=== PATIENT | male | born 1985 | race Two or more races ===

== ENCOUNTER 2020-02-13 11:47 | Inpatient (IN) | payer OTHER ==
[~2020-02-13] VITALS: Ht 170.2 cm; Wt 101.1 kg
[2020-02-13 12:48] LABS: Urine Amorphous Crystal FEW /hpf (None Seen); Urine Bacteria NONE SEEN /hpf (None Seen); Urine Blood Negative /uL (Negative); Urine Specific Gravity 1.016 (1.001-1.035); Urine WBC 2 /hpf (0 - 3)
[2020-02-13 12:55] LABS: Basophils # (auto) 0.1 10 ^3/uL (0-0.2); Basophils % (auto) 1.1 % (0.0-2.0); Eosinophils # (auto) 0 10 ^3/uL (0-0.8); Eosinophils % (auto) 0.5 % (0.0-7.0); Hematocrit 47.8 % (41.0-53.0); Hemoglobin 16.6 g/dL (13.5-17.5); Lymphocytes % (auto) 26.8 % (10.0-50.0); Mean Corpuscular Hemoglobin 31.4 pg (28.0-32.0); Mean Corpuscular Hgb Conc. 34.8 g/dL (32.0-36.0); Mean Corpuscular Volume 90.2 fL (80.0-100.0); Monocytes # (auto) 0.5 10 ^3/uL (0-1.3); Monocytes % (auto) 6.8 % (0.0-12.0); Neutrophils # (auto) 4.9 10 ^3/uL (1.6-8.6); Neutrophils % (auto) 64.8 % (37.0-80.0); Nucleated Red Blood Cells % 0.2 %; Platelet Count (auto) 223 10^3/uL (140-450); Red Cell Distribution Width 13.3 % (11.8-14.3); White Blood Cell 7.5 10^3/uL (4.4-10.8)
[2020-02-13] MEDS ORDERED: SODIUM CHLORIDE 0.9% 1,000 ML IVB ONE (13:07)
[2020-02-13 13:12] LABS: Calcium 8.7 mg/dL (8.5-10.1); Potassium 4.3 mmol/L (3.5-5.1)
[2020-02-13 13:15] LABS: Bilirubin, Total 0.8 mg/dL (0.2-1.0); Total Protein 7.9 g/dL (6.4-8.2)
[2020-02-13 13:26] LABS: Magnesium 2.1 mg/dL (1.6-2.6)
[2020-02-13] MEDS ORDERED: ONDANSETRON HCL 4 MG/2 ML VIAL IV ONE (13:30)
[2020-02-13] MEDS ORDERED: MORPHINE SULF INJ 2 MG/ML SYRINGE 1ML IV ONE (13:30)
[2020-02-13] MEDS: HYDROcodone-ACET 10/325MG TAB PO PRN ×2 (18:27→23:00)
--- NOTE | 2020-02-13 19:04 | NUR ---
Patient arrived to unit. no signs of distress, will endorse to night order selector.
--- NOTE | 2020-02-13 19:06 | NUR ---
Paged MD Galvez, regarding patient stating that at the alf the there told him, he could be positive for Covid-19. MD Galvez called back, asking if patient was displaying any sob, coughing, or temps. Informed MD Galvez, none of those symptoms were witness by this nurse. No new orders received at this time. Endorsed care to night BARBARA Novak.
--- NOTE | 2020-02-13 19:10 | NUR ---
Opening Shift Note Assumed care of patient. Patient is awake and alert. No S/S of distress/SOB. Will continue to monitor for changes Q1hr and PRN. Bed locked in lowest position and bed rails up x2. Call light within reach.
[2020-02-13 19:47] VITALS: BP 138/77
[2020-02-13 20:57] VITALS: BP 138/77
[2020-02-13] MEDS: ONDANSETRON HCL 4 MG/2 ML VIAL IV PRN (23:00)
[2020-02-14] MEDS: ONDANSETRON HCL 4 MG/2 ML VIAL IV PRN (04:20)
[2020-02-14] MEDS: HYDROcodone-ACET 10/325MG TAB PO PRN ×4 (04:20→20:56)
[2020-02-14 05:25] VITALS: BP 119/73
--- NOTE | 2020-02-14 07:45 | NUR ---
Opening Shift Note Received report on the patient. Awake lying in bed. Patient states that he is saving SOB and increased coughing. The patient requested to wear a mask. Discussed the plan of care for the patient. Bed is in the lowest position, side rails up x2, and the call light is within reach. Will continue to monitor.
--- NOTE | 2020-02-14 08:11 | NUR ---
Paged Dr Galvez regarding new symptoms of SOB and cough. Awaiting a call back.
[2020-02-14 09:00] VITALS: BP 101/75
[2020-02-14] MEDS ORDERED: ENOXAPARIN SOD 40 MG/0.4 ML SYRINGE SC SCH (10:00)
--- NOTE | 2020-02-14 10:59 | NUR ---
NUTRITION ASSESSMENT NOTES Please refer to link notes of nutrition screen form filed under the intervention section of the plan of care for further details. Est. Energy Needs: 5306-2353 kcal (17-20 kcal/kg BW). Est. Protein Needs: 60-75 gms/day (0.8-1.0 gms/kg Adj.BW). Will continue to monitor pertinent labs and reassess nutrient need prn Addendum: 02/14/20 at [address] Amended: Links added.
--- NOTE | 2020-02-14 11:01 | NUR ---
received new orders.
[2020-02-14] MEDS ORDERED: MANNITOL FTV 25% 12.5 GM/50 ML 50 ML IV ONE (11:30)
--- NOTE | 2020-02-14 12:12 | NUR ---
Swabs Influenza A/B and strep swabs sent to lab
[2020-02-14 13:00] VITALS: BP 110/67
--- NOTE | 2020-02-14 13:01 | NUR ---
Mannitol Mannitol was crystalized so I had to reorder another bag.
--- NOTE | 2020-02-14 14:37 | NUR ---
Swabs are negative. Dr does not want to test for COVID 19.
[2020-02-14] MEDS: SODIUM CHLORIDE 0.9% 1,000 ML IV SCH ×2 (14:40→22:30)
[2020-02-14 16:40] VITALS: BP 139/81
[2020-02-14] MEDS: TAMSULOSIN HYDROCHLORIDE 0.4 MG CAP PO SCH (18:41)
--- NOTE | 2020-02-14 19:30 | NUR ---
received pt f rom day rn poc reviewed
--- NOTE | 2020-02-14 21:00 | NUR ---
c/o pain 6/10 when coughing medicated as ordered, resp even and unlabored, v/s t 98.8, hr 86,r 18 ,97% on 2L
[2020-02-14 22:00] VITALS: BP 109/59
--- NOTE | 2020-02-15 03:05 | NUR ---
resting with eyes closed resp even and unlabored, urine strained as ordered
[2020-02-15] MEDS: HYDROcodone-ACET 10/325MG TAB PO PRN ×4 (04:49→19:08)
--- NOTE | 2020-02-15 04:51 | NUR ---
pt awoke c/o headache 06/23, pt showed me reddened bump on left side of head, no s/s of open wound, pt continue to have a non productive cough, not able to void at this time.
[2020-02-15 05:00] VITALS: BP 148/74
[2020-02-15] MEDS: SODIUM CHLORIDE 0.9% 1,000 ML IV SCH ×3 (06:31→20:41)
--- NOTE | 2020-02-15 06:48 | NUR ---
pt has not voided all night, ambulated earlier to bathroom states wasnt able to void then, urinals at bedside, will look for bladder scanner
--- NOTE | 2020-02-15 06:51 | NUR ---
report given to am nurse poc reviewed
--- NOTE | 2020-02-15 07:05 | NUR ---
PT VOIDED @120 ML NO STONES AFTER STRAINING, PT STATED THAT HE CANT VOID, BLADDER SCANNED NOT ABLE TO GET AN ACCURATE READING PT C/O INCREASED PAIN DURING SCAN, WILL MEDICATED AND REPORT TO AM NURSE INCOMPLETE SCAN
--- NOTE | 2020-02-15 07:25 | NUR ---
Opening shift note Received report on the patient. Awake lying in bed. Patient shows no signs of distress at this time. Discussed the plan of care with the patient. Bed in lowest position, side rails up x2, and the call light is within reach. Will continue to monitor.
[2020-02-15 09:00] VITALS: BP 130/72
[2020-02-15] MEDS: ENOXAPARIN SOD 40 MG/0.4 ML SYRINGE SC SCH (10:51)
[2020-02-15 12:39] VITALS: BP 124/71
[2020-02-15 14:25] LABS: INR 1.21 (0.9-1.15); Partial Thromboplastin Time 29.5 sec (23.64-32.05)
--- NOTE | 2020-02-15 15:34 | NUR ---
Bladder scan Bladder scanned the patient after urination and there was 0mL. No ramirez at this time.
[2020-02-15 17:00] VITALS: BP 127/73
[2020-02-15] MEDS: TAMSULOSIN HYDROCHLORIDE 0.4 MG CAP PO SCH (19:07)
--- NOTE | 2020-02-15 19:53 | NUR ---
RECEIVED PT FROM DAY RN POC REVIEWED
--- NOTE | 2020-02-15 19:54 | NUR ---
DISCUSSED POC WITH PT, INTERPRETOR AT BEDSIDE, WILL CONTINUE TO STRAIN URINE
[2020-02-15] MEDS: KETOROLAC TROMETH 30 MG/ML 1ML VIAL IV PRN (20:40)
--- NOTE | 2020-02-15 20:40 | NUR ---
c/o lower abd pain 04/23 medicated as ordered 100 ml strained urine out at this time
[2020-02-15 22:00] VITALS: BP 123/73
--- NOTE | 2020-02-16 01:05 | NUR ---
resting with eyes closed no c/o discomfort
[2020-02-16 05:00] VITALS: BP 115/76
[2020-02-16] MEDS: HYDROcodone-ACET 10/325MG TAB PO PRN ×3 (05:18→17:27)
[2020-02-16] MEDS: ENOXAPARIN SOD 40 MG/0.4 ML SYRINGE SC SCH (05:18)
--- NOTE | 2020-02-16 06:19 | NUR ---
awoke c/o abd pain 04/23 medicated as ordered urine strained as ordered, pt put out a total of 600 ml of urine
[2020-02-16] MEDS: SODIUM CHLORIDE 0.9% 1,000 ML IV SCH ×3 (06:31→22:07)
--- NOTE | 2020-02-16 06:47 | NUR ---
report given to am nurse poc reviewed
--- NOTE | 2020-02-16 07:45 | NUR ---
Opening Shift Note Assumed care of patient, awake, alert, and oriented. No S/S of distress/SOB or pain. Bed in lowest locked position, bed rails up x2, call light within reach. Instructed on POC and to call for assist PRN. Will continue to monitor for changes Q1hr and PRN.
--- NOTE | 2020-02-16 08:55 | NUR ---
PAIN PAIN C/O 9/10 PAIN TO RUQ ACHY PAIN. WILL MEDICATE PER MD ORDERS
[2020-02-16 09:00] VITALS: BP 131/83
[2020-02-16] MEDS ORDERED: OMNIPAQUE ORAL SOLN 500ml 12mg/ml PO ONE (10:57)
--- NOTE | 2020-02-16 11:15 | NUR ---
CT RN CVOR AT BEDSIDE. ADMINISTERING ORAL CONTRAST.
[2020-02-16] MEDS ORDERED: IOHEXOL 300 MG/ML 100ML BOTTLE IJ ONE (12:55)
[2020-02-16 13:00] VITALS: BP 139/84
[2020-02-16] MEDS: LACTULOSE 20Gm/30ML SOLN PO SCH ×4 (13:42→22:07)
[2020-02-16] MEDS: PIPERACILLIN-TAZO 4.5GM 100 ML IV SCH ×2 (13:43→22:07)
--- NOTE | 2020-02-16 13:51 | NUR ---
OUTPUT PATIENT URINATED 200 ML CLEAR STRAW URINE. URINE STRAINED, NO EVIDENCE OF ANY SEDIMENT OR STONES NOTED. WILL CONTINUE TO MONITOR
[2020-02-16 17:00] VITALS: BP 135/68
[2020-02-16] MEDS: TAMSULOSIN HYDROCHLORIDE 0.4 MG CAP PO SCH (17:16)
--- NOTE | 2020-02-16 17:20 | NUR ---
PAIN PAIN C/O 5/10 PAIN TO LOWER ABDOMEN ACHY PAIN WHILE HE URINATES. WILL MEDICATE PER MD ORDERS
--- NOTE | 2020-02-16 17:33 | NUR ---
OUTPUT PATIENT URINATED 280 ML CLEAR STRAW URINE. URINE STRAINED, NO EVIDENCE OF ANY SEDIMENT OR STONES NOTED. WILL CONTINUE TO MONITOR
--- NOTE | 2020-02-16 19:20 | NUR ---
Opening Shift Note Assumed care of patient, awake and alert. No S/S of distress/SOB or pain. Instructed on POC and to call for assist PRN, will continue to monitor for changes Q1hr and PRN. Call light and bedside table are within reach. Maintained safety precautions bed is in lowest position and bed rails 2x.
[2020-02-16 22:00] VITALS: BP 125/74
--- NOTE | 2020-02-16 22:10 | NUR ---
Patient refused med Patient refused lactulose, states med causes him some abdominal discomfort and that he has had some loose stools. Provided education about med side effects. Will continue to monitor patient Q1 and PRN.
[2020-02-16] MEDS: KETOROLAC TROMETH 30 MG/ML 1ML VIAL IV PRN (23:56)
--- NOTE | 2020-02-17 00:20 | NUR ---
Patient complains of pain Pain level 3, will medicate per MD orders. Will continue to monitor Q1 and PRN. Call light and bedside table are within reach.
[2020-02-17] MEDS: LACTULOSE 20Gm/30ML SOLN PO SCH ×3 (02:00→09:52)
--- NOTE | 2020-02-17 04:00 | NUR ---
Patient urine output 250ml of urine output. Urine strained, no sediment, or stones noted. Will continue to monitor Q1 and PRN.
[2020-02-17 05:39] VITALS: BP 102/62
[2020-02-17] MEDS: SODIUM CHLORIDE 0.9% 1,000 ML IV SCH (05:45)
--- NOTE | 2020-02-17 05:50 | NUR ---
Patient urine output 320ml of urine. Urine strained, no sediment or stones seen. Will continue to monitor Q1 and PRN.
[2020-02-17] MEDS: PIPERACILLIN-TAZO 4.5GM 100 ML IV SCH (05:55)
--- NOTE | 2020-02-17 05:59 | NUR ---
Called MD Waiting for call back from MD Galvez regarding patient complaints of mild abdominal pain and discomfort from lactulose. Will continue to monitor patient Q1 and PRN. Will notify dayshift BARBARA.
--- NOTE | 2020-02-17 07:15 | NUR ---
Opening Shift Note Assumed care of patient, awake and alert. No S/S of distress/SOB or pain. Instructed on POC and to call for assist PRN, will continue to monitor for changes Q1hr and PRN. Fall precautions in place per safety protocol.
[2020-02-17 09:00] VITALS: BP 132/84
[2020-02-17] MEDS: ENOXAPARIN SOD 40 MG/0.4 ML SYRINGE SC SCH (09:51)
--- NOTE | 2020-02-17 12:00 | NUR ---
Discharge instructions given as ordered. Encourage to follow up with PMD as instructed. All questions and concerns addressed. Patient verbalized understanding. Medication reconciliation form completed and copy given to patient. IV removed with catheter intact, pressure dressing applied.
[2020-02-17] MEDS ORDERED: LEVO500T21 PO (12:45)
[2020-02-17 12:57] VITALS: BP 129/78
[2020-02-17 13:00] VITALS: BP 129/78
== END 2020-02-17 13:00 | DRG 690 ==
LOC: EEVIPCON 11:47 → ER 11:47 → OVERFLOW 11:48 → EAST 19:44
PROVIDERS: ADMIT Internal Medicine; ATTEND Internal Medicine
DX: N13.6 Pyonephrosis (principal); N20.2 Calculus of kidney with calculus of ureter; B96.4 Proteus (mirabilis) (morganii) as the cause of diseases classified elsewhere; J06.9 Acute upper respiratory infection, unspecified; M79.10 Myalgia, unspecified site; Z82.49 Family history of ischemic heart disease and other diseases of the circulatory system; Z83.3 Family history of diabetes mellitus
CPT/HCPCS: 36415; 71045; 74018; 74176; 74177; 80053; 81001; 83690; 83735; 85025; 85610; 85730; 87070; 87086; 87088; 87186; 87804; 87880; 96361; 96374; 96375; G0378; J1885; J2405; J2543

== ENCOUNTER 2020-04-08 17:27 | Inpatient (IN) | payer OTHER ==
[~2020-04-08] VITALS: Ht 172.7 cm; Wt 98.7 kg
[~2020-04-08 17:27] MED LIST: LEVO500T21 PO
[2020-04-08] MEDS ORDERED: SODIUM CHLORIDE 0.9% 1,000 ML IVB ONE (17:42)
[2020-04-08] MEDS ORDERED: KETOROLAC TROMETH 30 MG/ML 1ML VIAL IV ONE (17:45)
[2020-04-08] MEDS ORDERED: MORPHINE SULFATE 4 MG/ML SYR/VIAL IV ONE (17:45)
[2020-04-08 18:35] LABS: Basophils # (auto) 0.1 10 ^3/uL (0-0.2); Basophils % (auto) 0.9 % (0.0-2.0); Eosinophils # (auto) 0 10 ^3/uL (0-0.8); Eosinophils % (auto) 0.5 % (0.0-7.0); Hematocrit 46.1 % (41.0-53.0); Hemoglobin 16.3 g/dL (13.5-17.5); Lymphocytes # (auto) 2.3 10 ^3/uL (0.4-5.4); Lymphocytes % (auto) 29.1 % (10.0-50.0); Mean Corpuscular Hemoglobin 31.9 pg (28.0-32.0); Mean Corpuscular Hgb Conc. 35.3 g/dL (32.0-36.0); Mean Corpuscular Volume 90.3 fL (80.0-100.0); Monocytes # (auto) 0.5 10 ^3/uL (0-1.3); Monocytes % (auto) 6.9 % (0.0-12.0); Neutrophils # (auto) 4.9 10 ^3/uL (1.6-8.6); Neutrophils % (auto) 62.6 % (37.0-80.0); Nucleated Red Blood Cells % 0.2 %; Platelet Count (auto) 238 10^3/uL (140-450); Red Blood Cells 5.11 10^6/uL (4.5-5.90); Red Cell Distribution Width 13.4 % (11.8-14.3); White Blood Cell 7.8 10^3/uL (4.4-10.8)
[2020-04-08 18:51] LABS: Albumin 4.2 g/dL (3.4-5.0); Calcium 8.7 mg/dL (8.5-10.1); Potassium 3.6 mmol/L (3.5-5.1)
[2020-04-08 18:54] LABS: BUN/Creatinine Ratio 8.9; Bilirubin, Total 0.6 mg/dL (0.2-1.0); Total Protein 7.8 g/dL (6.4-8.2)
[2020-04-08 19:07] LABS: Urine Bacteria NONE SEEN /hpf (None Seen); Urine Blood TRACE /uL (Negative); Urine Mucus FEW (None Seen); Urine WBC 1 /hpf (0 - 3)
[2020-04-08] MEDS ORDERED: ONDANSETRON HCL 4 MG/2 ML VIAL IV ONE (22:15)
[2020-04-08] MEDS ORDERED: HYDROmorphone HCL 2 MG/ML VL IV ONE (22:15)
[2020-04-08] MEDS ORDERED: MORPHINE SULF INJ 2 MG/ML SYRINGE 1ML IV PRN (23:45)
[2020-04-08] MEDS ORDERED: NITROGLYCERIN 0.4 MG SL TAB SL PRN (23:45)
[2020-04-08] MEDS ORDERED: D5W/SOD CHL 0.45% 1,000 ML IV ONE (23:45)
[2020-04-09] MEDS ORDERED: KETOROLAC TROMETH 30 MG/ML 1ML VIAL IV ONE
[2020-04-09 01:01] VITALS: BP 139/97
[2020-04-09] MEDS ORDERED: HYDROcodone-ACET 10/325MG TAB PO ONE (02:00)
[2020-04-09 05:00] VITALS: BP 135/80
[2020-04-09 06:07] LABS: Basophils # (auto) 0.1 10 ^3/uL (0-0.2); Basophils % (auto) 0.9 % (0.0-2.0); Eosinophils # (auto) 0.1 10 ^3/uL (0-0.8); Eosinophils % (auto) 0.9 % (0.0-7.0); Hemoglobin 15.2 g/dL (13.5-17.5); Lymphocytes % (auto) 35.4 % (10.0-50.0); Mean Corpuscular Hemoglobin 31.7 pg (28.0-32.0); Mean Corpuscular Hgb Conc. 35.4 g/dL (32.0-36.0); Mean Corpuscular Volume 89.5 fL (80.0-100.0); Monocytes # (auto) 0.5 10 ^3/uL (0-1.3); Monocytes % (auto) 9.3 % (0.0-12.0); Neutrophils % (auto) 53.5 % (37.0-80.0); Nucleated Red Blood Cells % 0.1 %; Platelet Count (auto) 208 10^3/uL (140-450); Red Cell Distribution Width 13.7 % (11.8-14.3); White Blood Cell 5.6 10^3/uL (4.4-10.8)
[2020-04-09 06:33] LABS: Potassium 3.3 mmol/L (3.5-5.1)
[2020-04-09 06:41] LABS: Albumin 3.8 g/dL (3.4-5.0); BUN/Creatinine Ratio 9.3; Bilirubin, Total 0.6 mg/dL (0.2-1.0); Calcium 8.4 mg/dL (8.5-10.1); Total Protein 7.1 g/dL (6.4-8.2)
[2020-04-09 08:14] VITALS: BP 124/72
[2020-04-09 09:00] VITALS: BP 141/68
[2020-04-09 13:00] VITALS: BP 141/81
[2020-04-09] MEDS: HYDROcodone-ACET 10/325MG TAB PO PRN ×2 (14:50→18:50)
[2020-04-09 16:30] VITALS: BP 130/87
[2020-04-09] MEDS: KETOROLAC TROMETH 30 MG/ML 1ML VIAL IV PRN (20:56)
[2020-04-09] MEDS: SULFAMETHOX W/TRIMETH(800/160MG) DS TAB PO SCH (21:11)
[2020-04-10 05:00] VITALS: BP 108/57
[2020-04-10 08:00] VITALS: BP 137/83
[2020-04-10 09:00] VITALS: BP 137/83
[2020-04-10] MEDS: SULFAMETHOX W/TRIMETH(800/160MG) DS TAB PO SCH ×2 (09:00→22:18)
[2020-04-10] MEDS: KETOROLAC TROMETH 30 MG/ML 1ML VIAL IV PRN ×3 (09:00→22:18)
[2020-04-10 13:00] VITALS: BP 143/91
[2020-04-10 13:54] LABS: INR 1.24 (0.9-1.15); Partial Thromboplastin Time 27.5 sec (23.64-32.05)
[2020-04-10] MEDS ORDERED: fentaNYL CITRATE 100 MCG/2 ML VL ONE ×2 (16:34→19:34)
[2020-04-10] MEDS ORDERED: MIDAZOLAM HCL 1MG/1ML-2 ML VIAL ONE ×2 (16:34→19:34)
[2020-04-10] MEDS ORDERED: ONDANSETRON HCL 4 MG/2 ML VIAL ONE ×2 (16:34→19:35)
[2020-04-10] MEDS: TAMSULOSIN HYDROCHLORIDE 0.4 MG CAP PO SCH (17:56)
[2020-04-10] MEDS ORDERED: KETOROLAC TROMETH 30 MG/ML 1ML VIAL ONE (19:35)
[2020-04-10] MEDS ORDERED: GLYCOPYRROLATE 0.2 MG/ML 1ML VIAL ONE (19:35)
[2020-04-10] MEDS ORDERED: ONDANSETRON HCL 4 MG/2 ML VIAL IV PRN (20:30)
[2020-04-10] MEDS ORDERED: LABETALOL HCL 5 MG/ML 4ML SYRINGE IV PRN (20:30)
[2020-04-10] MEDS ORDERED: HYDROmorphone HCL 2 MG/ML VL IV PRN (20:30)
[2020-04-10 21:58] VITALS: BP 134/87
[2020-04-11 05:00] VITALS: BP 125/62
[2020-04-11] MEDS: KETOROLAC TROMETH 30 MG/ML 1ML VIAL IV PRN ×3 (06:27→19:51)
[2020-04-11 08:00] VITALS: BP 127/79
[2020-04-11 09:00] VITALS: BP 127/79
[2020-04-11] MEDS: SULFAMETHOX W/TRIMETH(800/160MG) DS TAB PO SCH ×2 (10:04→22:00)
[2020-04-11] MEDS: TAMSULOSIN HYDROCHLORIDE 0.4 MG CAP PO SCH (12:30)
[2020-04-11 13:00] VITALS: BP 142/92
[2020-04-11 17:00] VITALS: BP 144/86
[2020-04-11 22:00] VITALS: BP 149/95
[2020-04-12 05:00] VITALS: BP 133/69
[2020-04-12 09:00] VITALS: BP 138/66
[2020-04-12] MEDS: SULFAMETHOX W/TRIMETH(800/160MG) DS TAB PO SCH ×2 (09:24→20:47)
[2020-04-12] MEDS: KETOROLAC TROMETH 30 MG/ML 1ML VIAL IV PRN ×2 (09:25→17:39)
[2020-04-12 12:30] VITALS: BP 139/102
[2020-04-12] MEDS: HYDROcodone-ACET 10/325MG TAB PO PRN ×2 (13:04→20:47)
[2020-04-12 17:00] VITALS: BP 143/94
[2020-04-12] MEDS: TAMSULOSIN HYDROCHLORIDE 0.4 MG CAP PO SCH (17:39)
[2020-04-12 21:36] VITALS: BP 148/80
[2020-04-13] MEDS: KETOROLAC TROMETH 30 MG/ML 1ML VIAL IV PRN ×3 (00:03→20:23)
[2020-04-13 05:00] VITALS: BP 127/79
[2020-04-13] MEDS: SULFAMETHOX W/TRIMETH(800/160MG) DS TAB PO SCH ×2 (09:23→20:22)
[2020-04-13 09:34] VITALS: BP 135/73
[2020-04-13] MEDS: HYDROcodone-ACET 10/325MG TAB PO PRN (12:33)
[2020-04-13 14:27] VITALS: BP 119/82
[2020-04-13 16:25] VITALS: BP 153/90
[2020-04-13] MEDS: traMADol HCL 50 MG TAB PO PRN (16:47)
[2020-04-13] MEDS: TAMSULOSIN HYDROCHLORIDE 0.4 MG CAP PO SCH (17:35)
[2020-04-13 22:00] VITALS: BP 134/82
[2020-04-14 05:08] VITALS: BP 117/67
[2020-04-14] MEDS: KETOROLAC TROMETH 30 MG/ML 1ML VIAL IV PRN ×2 (08:30→15:34)
[2020-04-14 09:00] VITALS: BP 114/80
[2020-04-14] MEDS: SULFAMETHOX W/TRIMETH(800/160MG) DS TAB PO SCH ×2 (09:51→21:48)
[2020-04-14] MEDS: traMADol HCL 50 MG TAB PO PRN ×3 (12:12→22:47)
[2020-04-14 13:00] VITALS: BP 140/83
[2020-04-14 16:59] VITALS: BP 120/75
[2020-04-14] MEDS: TAMSULOSIN HYDROCHLORIDE 0.4 MG CAP PO SCH (18:44)
[2020-04-14 21:49] VITALS: BP 138/92
[2020-04-15 05:00] VITALS: BP 117/71
[2020-04-15] MEDS: traMADol HCL 50 MG TAB PO PRN ×2 (07:44→22:38)
[2020-04-15 09:00] VITALS: BP 130/68
[2020-04-15] MEDS: SULFAMETHOX W/TRIMETH(800/160MG) DS TAB PO SCH ×2 (09:46→22:37)
[2020-04-15] MEDS: KETOROLAC TROMETH 30 MG/ML 1ML VIAL IV PRN ×2 (11:43→17:51)
[2020-04-15 13:00] VITALS: BP 130/86
[2020-04-15 16:55] VITALS: BP 123/83
[2020-04-15] MEDS: TAMSULOSIN HYDROCHLORIDE 0.4 MG CAP PO SCH (17:51)
[2020-04-15 22:00] VITALS: BP 125/79
[2020-04-16 05:00] VITALS: BP 116/74
[2020-04-16 08:47] VITALS: BP 108/66
[2020-04-16] MEDS: KETOROLAC TROMETH 30 MG/ML 1ML VIAL IV PRN ×2 (09:11→21:51)
[2020-04-16] MEDS: SULFAMETHOX W/TRIMETH(800/160MG) DS TAB PO SCH ×2 (11:18→21:51)
[2020-04-16 13:00] VITALS: BP 110/73
[2020-04-16] MEDS ORDERED: POTASSIUM CHL 20 Meq TABLET PO ONE (15:30)
[2020-04-16 16:56] VITALS: BP 125/84
[2020-04-16] MEDS: traMADol HCL 50 MG TAB PO PRN (17:17)
[2020-04-16] MEDS: TAMSULOSIN HYDROCHLORIDE 0.4 MG CAP PO SCH (17:17)
[2020-04-16 22:17] VITALS: BP 119/78
[2020-04-17] MEDS: KETOROLAC TROMETH 30 MG/ML 1ML VIAL IV PRN ×3 (05:00→19:02)
[2020-04-17 05:05] VITALS: BP 128/76
[2020-04-17 07:29] LABS: Calcium 8.4 mg/dL (8.5-10.1)
[2020-04-17 07:45] LABS: Potassium 5.9 mmol/L (3.5-5.1)
[2020-04-17 09:00] VITALS: BP 116/77
[2020-04-17] MEDS: SULFAMETHOX W/TRIMETH(800/160MG) DS TAB PO SCH ×2 (09:25→22:10)
[2020-04-17] MEDS: traMADol HCL 50 MG TAB PO PRN ×2 (09:26→22:11)
[2020-04-17] MEDS: ONDANSETRON HCL 4 MG/2 ML VIAL IV PRN ×2 (12:18→19:02)
[2020-04-17 13:00] VITALS: BP 118/72
[2020-04-17] MEDS: SOD CHL 0.45% 1,000 ML IV SCH ×2 (14:47→19:25)
[2020-04-17 17:00] VITALS: BP 118/84
[2020-04-17] MEDS: TAMSULOSIN HYDROCHLORIDE 0.4 MG CAP PO SCH (18:15)
[2020-04-17 21:52] VITALS: BP 122/88
[2020-04-18] MEDS: SOD CHL 0.45% 1,000 ML IV SCH ×4 (02:05→21:47)
[2020-04-18 04:53] VITALS: BP 107/68
[2020-04-18 06:39] LABS: Potassium 5.4 mmol/L (3.5-5.1)
[2020-04-18 06:54] LABS: BUN/Creatinine Ratio 11.2; Calcium 8.3 mg/dL (8.5-10.1)
[2020-04-18 09:00] VITALS: BP 109/66
[2020-04-18] MEDS: KETOROLAC TROMETH 30 MG/ML 1ML VIAL IV PRN ×3 (09:04→21:55)
[2020-04-18] MEDS: ONDANSETRON HCL 4 MG/2 ML VIAL IV PRN ×2 (09:04→15:27)
[2020-04-18] MEDS: SULFAMETHOX W/TRIMETH(800/160MG) DS TAB PO SCH ×2 (09:04→21:35)
[2020-04-18 13:00] VITALS: BP 120/83
[2020-04-18 16:34] VITALS: BP 126/79
[2020-04-18] MEDS: TAMSULOSIN HYDROCHLORIDE 0.4 MG CAP PO SCH (17:39)
[2020-04-18 21:35] VITALS: BP 134/84
[2020-04-19] MEDS: SOD CHL 0.45% 1,000 ML IV SCH ×3 (04:45→18:03)
[2020-04-19 04:52] VITALS: BP 124/72
[2020-04-19] MEDS: KETOROLAC TROMETH 30 MG/ML 1ML VIAL IV PRN ×2 (06:43→21:14)
[2020-04-19] MEDS: ONDANSETRON HCL 4 MG/2 ML VIAL IV PRN ×2 (06:43→12:20)
[2020-04-19] MEDS: SULFAMETHOX W/TRIMETH(800/160MG) DS TAB PO SCH ×2 (08:54→21:13)
[2020-04-19 09:00] VITALS: BP 132/75
[2020-04-19 13:00] VITALS: BP 124/77
[2020-04-19 16:57] VITALS: BP 141/81
[2020-04-19] MEDS: TAMSULOSIN HYDROCHLORIDE 0.4 MG CAP PO SCH (18:03)
[2020-04-19 21:47] VITALS: BP 147/78
[2020-04-19] MEDS: LACTULOSE 20Gm/30ML SOLN PO SCH (23:41)
[2020-04-20] MEDS: SOD CHL 0.45% 1,000 ML IV SCH ×4 (01:44→17:21)
[2020-04-20 05:02] VITALS: BP 105/75
[2020-04-20] MEDS: LACTULOSE 20Gm/30ML SOLN PO SCH ×4 (06:25→21:52)
[2020-04-20 09:00] VITALS: BP 135/74
[2020-04-20] MEDS: SULFAMETHOX W/TRIMETH(800/160MG) DS TAB PO SCH ×2 (10:14→21:26)
[2020-04-20] MEDS: KETOROLAC TROMETH 30 MG/ML 1ML VIAL IV PRN (10:21)
[2020-04-20 13:00] VITALS: BP 131/88
[2020-04-20 16:51] VITALS: BP 112/75
[2020-04-20] MEDS: traMADol HCL 50 MG TAB PO PRN ×2 (17:14→21:26)
[2020-04-20] MEDS: TAMSULOSIN HYDROCHLORIDE 0.4 MG CAP PO SCH (17:14)
[2020-04-20] MEDS: ONDANSETRON HCL 4 MG/2 ML VIAL IV PRN (20:44)
[2020-04-20 22:04] VITALS: BP 141/91
[2020-04-21 04:51] VITALS: BP 113/89
[2020-04-21] MEDS: LACTULOSE 20Gm/30ML SOLN PO SCH ×4 (06:58→22:00)
[2020-04-21 08:00] VITALS: BP 124/76
[2020-04-21] MEDS: traMADol HCL 50 MG TAB PO PRN ×2 (08:48→16:08)
[2020-04-21] MEDS: ONDANSETRON HCL 4 MG/2 ML VIAL IV PRN ×3 (08:48→22:22)
[2020-04-21 09:12] VITALS: BP 124/76
[2020-04-21] MEDS: SULFAMETHOX W/TRIMETH(800/160MG) DS TAB PO SCH ×2 (09:45→22:03)
[2020-04-21] MEDS: SOD CHL 0.45% 1,000 ML IV SCH ×3 (13:06→18:40)
[2020-04-21 13:30] VITALS: BP 120/64
[2020-04-21 16:41] VITALS: BP 126/69
[2020-04-21] MEDS: TAMSULOSIN HYDROCHLORIDE 0.4 MG CAP PO SCH (18:38)
[2020-04-21 21:34] VITALS: BP 134/88
[2020-04-22] MEDS: SOD CHL 0.45% 1,000 ML IV SCH ×2 (03:30→13:18)
[2020-04-22 05:00] VITALS: BP 122/55
[2020-04-22] MEDS: LACTULOSE 20Gm/30ML SOLN PO SCH ×2 (05:42→12:00)
[2020-04-22 06:43] LABS: Basophils # (auto) 0.1 10 ^3/uL (0-0.2); Basophils % (auto) 1.2 % (0.0-2.0); Eosinophils # (auto) 0.1 10 ^3/uL (0-0.8); Eosinophils % (auto) 1.9 % (0.0-7.0); Hematocrit 44.4 % (41.0-53.0); Hemoglobin 15.2 g/dL (13.5-17.5); Lymphocytes # (auto) 1.7 10 ^3/uL (0.4-5.4); Lymphocytes % (auto) 29.2 % (10.0-50.0); Mean Corpuscular Hemoglobin 31.5 pg (28.0-32.0); Mean Corpuscular Hgb Conc. 34.3 g/dL (32.0-36.0); Mean Corpuscular Volume 91.9 fL (80.0-100.0); Monocytes # (auto) 0.5 10 ^3/uL (0-1.3); Monocytes % (auto) 8.4 % (0.0-12.0); Neutrophils # (auto) 3.4 10 ^3/uL (1.6-8.6); Neutrophils % (auto) 59.3 % (37.0-80.0); Nucleated Red Blood Cells % 0.5 %; Platelet Count (auto) 215 10^3/uL (140-450); Red Blood Cells 4.83 10^6/uL (4.5-5.90); Red Cell Distribution Width 13.1 % (11.8-14.3); White Blood Cell 5.8 10^3/uL (4.4-10.8)
[2020-04-22 06:58] LABS: INR 1.21 (0.9-1.15); Partial Thromboplastin Time 28.4 sec (23.64-32.05)
[2020-04-22 07:03] LABS: Potassium 4.9 mmol/L (3.5-5.1)
[2020-04-22 07:08] LABS: Albumin 3.7 g/dL (3.4-5.0); BUN/Creatinine Ratio 8.5; Bilirubin, Total 0.5 mg/dL (0.2-1.0); Calcium 8.6 mg/dL (8.5-10.1); Total Protein 7.3 g/dL (6.4-8.2)
[2020-04-22 08:35] VITALS: BP 116/69
[2020-04-22] MEDS: SULFAMETHOX W/TRIMETH(800/160MG) DS TAB PO SCH (10:00)
[2020-04-22] MEDS ORDERED: LIDOCAINE 2%HCL (LOCAL ANESTH.) INJ 20ML MDV ONE (12:03)
[2020-04-22] MEDS ORDERED: MIDAZOLAM HCL 1MG/1ML-2 ML VIAL ONE (12:09)
[2020-04-22] MEDS ORDERED: fentaNYL CITRATE 100 MCG/2 ML VL ONE (12:09)
[2020-04-22] MEDS ORDERED: TAM04C PO (13:02)
== END 2020-04-22 14:18 | DRG 694 ==
LOC: EDBD 17:27 → EEVIPCON 17:27 → ER 17:27 → WEST WING 17:28
PROVIDERS: ADMIT Internal Medicine; ATTEND Internal Medicine
PROC: 0TF4XZZ Fragmentation in Left Kidney Pelvis, External Approach (ICD-10-PCS; principal; 2020-04-10 19:37)
DX: N13.2 Hydronephrosis with renal and ureteral calculous obstruction (principal); S37.012A Minor contusion of left kidney, initial encounter; R31.9 Hematuria, unspecified; Z91.19 Patient's noncompliance with other medical treatment and regimen; X58.XXXA Exposure to other specified factors, initial encounter; Y93.89 Activity, other specified; Y92.89 Other specified places as the place of occurrence of the external cause; Y99.8 Other external cause status; R79.89 Other specified abnormal findings of blood chemistry
CPT/HCPCS: 36415; 70450; 71045; 72040; 74176; 76775; 80048; 80053; 81001; 82270; 84132; 84484; 85025; 85610; 85730; 87081; 96374; 96375; 96376; G0378; J1885; J2250; J2405